=== PATIENT | female | born 1980 | race Caucasian/White ===

== ENCOUNTER 2017-04-18 20:11 | Emergency (ER) | payer BC ==
[~2017-04-18] VITALS: Ht 162.6 cm; Wt 70.3 kg
[2017-04-18] MEDS ORDERED: LIDOCAINE HCL 2% 20 ML VIAL ONE (20:35)
[2017-04-18] MEDS ORDERED: LIDOCAINE HCL 2% 20 ML VIAL TP ONE (20:45)
--- NOTE | 2017-04-18 20:55 | NUR ---
Patient discharged to home in stable conditon. Written and verbal after care instructions given. Patient verbalizes understanding of instructions.
[2017-04-18 20:56] VITALS: BP 128/30
== END 2017-04-18 20:57 | disposition home or self-care (01) ==
LOC: ER 20:12
DX: S61.210A Laceration without foreign body of right index finger without damage to nail, initial encounter (principal); W26.0XXA Contact with knife, initial encounter; Y93.89 Activity, other specified; Y92.009 Unspecified place in unspecified non-institutional (private) residence as the place of occurrence of the external cause; Y99.9 Unspecified external cause status
CPT/HCPCS: A4663; J3490

== ENCOUNTER 2017-04-20 10:35 | Emergency (ER) | payer BC ==
[~2017-04-20] VITALS: Ht 160 cm; Wt 68.0 kg
[2017-04-20] MEDS ORDERED: NAPR220C15 PO (10:48)
[2017-04-20] MEDS ORDERED: OXYC-128 PO (10:48)
--- NOTE | 2017-04-20 11:10 | NUR ---
Pt returned for wound check, sutured index finger 2 days ago, no s/s of infection. Pt c/o urinary retention, started yesterday, some bloating evident, LLQ pain, [id number]. Pt denies dizziness, CP, SOB, no other complaints, no distress noted.
[2017-04-20 11:38] LABS: *BILIRUBIN,URIN NEGATIVE (NEGATIVE); *BLOOD, URINE Trace-intact (NEGATIVE); *CLARITY,URINE CLEAR (CLEAR); *COLOR,URINE YELLOW (YELLOW); *KETONES,URINE NEGATIVE (NEGATIVE); *PROTEIN,URINE NEGATIVE (NEGATIVE); *UROBILINOGEN,URINE 0.2 E.U./dl (NORMAL); LEUKOCYTE ESTERASE ,URINE NEGATIVE (NEGATIVE); NITRITE, URINE NEGATIVE (NEGATIVE); PH,URINE 7.5 (5.0-8.0); UGLUCOSE NEGATIVE (NEGATIVE)
--- NOTE | 2017-04-20 11:43 | NUR ---
Pt given RX and d/c instructions, verbalized understanding.
[2017-04-20 11:49] LABS: BACTERIA,URINE FEW /HPF (NONE SEEN); RBC,URINE 0-3 /HPF (0-3); SQUAMOUS EPITHELIAL CELL,UR MODERATE /HPF (NONE SEEN); WBC,URINE 0-3 /HPF (0-3)
== END 2017-04-20 11:48 | disposition home or self-care (01) ==
LOC: ER 10:35
DX: R30.0 Dysuria (principal); Z90.49 Acquired absence of other specified parts of digestive tract
CPT/HCPCS: A4663